=== PATIENT | female | born 1970 | race Caucasian/White ===

== ENCOUNTER → 2024-06-04 17:59 | Outpatient (REF) | payer OTHER, SELFPAY | LOC: WDC 17:59 | PROVIDERS: ATTENDING PHYSICIAN Obstetrics & Gynecology Gynecology; FAMILY PHYSICIAN Family Medicine | DX: Z12.31 Encounter for screening mammogram for malignant neoplasm of breast (principal); Z01.419 Encounter for gynecological examination (general) (routine) without abnormal findings | CPT/HCPCS: 77063; 77067 ==

== ENCOUNTER → 2024-08-08 09:29 | Outpatient (REF) | payer OTHER, SELFPAY | LOC: RAD 09:29 | PROVIDERS: ATTENDING PHYSICIAN Family Medicine | DX: M79.645 Pain in left finger(s) (principal) | CPT/HCPCS: 76881 ==

== ENCOUNTER 2024-10-18 06:15 | Day surgery (SDC) | payer OTHER, SELFPAY | END 2024-10-18 09:20 | disposition home or self-care (01) | LOC: GI 06:15 | PROVIDERS: ATTENDING PHYSICIAN Specialist; FAMILY PHYSICIAN Family Medicine | DX: Z12.11 Encounter for screening for malignant neoplasm of colon (principal); K57.30 Diverticulosis of large intestine without perforation or abscess without bleeding; K63.5 Polyp of colon; K62.1 Rectal polyp; Z86.0101 Personal history of adenomatous and serrated colon polyps | CPT/HCPCS: 45380; 88305 ==

== ENCOUNTER → 2024-11-01 19:01 | Outpatient (REF) | payer OTHER, SELFPAY | LOC: RAD 19:01 | PROVIDERS: ATTENDING PHYSICIAN Specialist; FAMILY PHYSICIAN Family Medicine | DX: N20.0 Calculus of kidney (principal) | CPT/HCPCS: 74018 ==

== ENCOUNTER → 2025-01-02 07:59 | Outpatient (REF) | payer OTHER, SELFPAY | LOC: RAD 07:59 | PROVIDERS: ATTENDING PHYSICIAN Family Medicine | DX: M79.609 Pain in unspecified limb (principal) | CPT/HCPCS: 93971 ==